=== PATIENT | male | born 1995 | race Caucasian/White ===

== ENCOUNTER 2019-06-14 20:49 | Emergency (ER) | payer OTHER ==
[~2019-06-14] VITALS: Ht 182.9 cm; Wt 75.9 kg
[2019-06-14 20:55] VITALS: BP 140/91
--- NOTE | 2019-06-14 21:04 | NUR ---
DR. JOHNSON EVALUATING PT. AT THIS TIME.
--- NOTE | 2019-06-14 21:30 | NUR ---
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 PT. WITH NO DISTRESS.
== END 2019-06-14 21:32 | disposition home or self-care (01) ==
LOC: ED 21:20
DX: J02.0 Streptococcal pharyngitis (principal); Z20.828 Contact with and (suspected) exposure to other viral communicable diseases; B34.9 Viral infection, unspecified
CPT/HCPCS: 99283